=== PATIENT | female | born 1960 | race Caucasian/White ===

== ENCOUNTER → 2017-06-12 | Outpatient (CLI) | payer OTHER ==
--- NOTE | 2017-06-12 11:24 | PFTRPT ---
Tech: Wayne TSANG RRT Age: 56 Sex: Female Race: Height: 48.00 Inches Weight: 263.00 Lbs BSA: 1.78 Diagnosis: R06.02 TECH NOTES: The test meet the ATS standards for acceptability and repeatability. The patient was given four puffs of albuterol for postbronchodilator. IVC is less than 85% of VC. DLCO may be underestimated. PULMONARY FUNCTION REPORT ORDERING PROVIDER: Max Woody MD DATE OF SERVICE: 06/12/17 SPIROMETRY: Pre and post bronchodilator study of excellent technical quality. The forced vital capacity is normal. The FEV1 is in proportion. The obstructive index is, therefore, normal. FLOW VOLUME LOOP: The expiratory limb of the flow volume loop is borderline for normalcy. No significant bronchodilator response is identified. LUNG VOLUMES: The total lung capacity is minimally elevated. The residual volume is in proportion. DIFFUSION CAPACITY: The diffusion capacity is mildly reduced, but does correct for alveolar volume. HEMOGLOBIN: Hemoglobin is borderline elevated at 17.2. AIRWAY MECHANICS: Airway resistance is mildly elevated with a concomitant decrease in airway conductance. IMPRESSION: Nonspecific limitations with a mild decrease in the absolute diffusion capacity. Please correlate clinically. MTDD
== END ==
LOC: M CARPUL 10:19
PROVIDERS: ATTEND Internal Medicine Pulmonary Disease
DX: R06.02 Shortness of breath (principal)

== ENCOUNTER → 2019-10-29 | Outpatient (CLI) | payer OTHER ==
--- NOTE | 2019-10-30 20:27 | SLEEPCENT ---
DATE OF PROCEDURE: 10/29/2019 ORDERED BY: Dr. Max Woody Nocturnal polysomnography was performed for the re-titration of pressure therapy in this patient with obstructive sleep apnea syndrome and abnormal nocturnal oximetry despite 17 cm of water pressure. For testing the patient was fit with a [employer] Simplus full-face mask of small size, 17 cm of water pressure were applied to the circuit with 4 liters of oxygen bled through the system and the lights were extinguished. 8 hours and 11 minutes of data were reviewed. There were 427 minutes of sleep identified. Sleep latency was short at 2 minutes. Rapid eye movement (REM) sleep was not achieved. Sleep architecture showed poor progression throughout. Overall sleep efficiency was 88.5%. The electrocardiogram showed a sinus rhythm with small complexes, occasional premature ventricular contractions (PVCs) were noted, average heart rate 76 beats per minute. EEG showed fairly normal waveforms for awake and sleep. Persistence of respiratory events and snore events prompted an increase in continuous positive airway pressure (CPAP). It appears that oxygen was continued at 4 liters late in the study. Despite optimal mask fit and minimal air leak, the patient was changed to a bilevel device and for the final 33 minutes of testing, the patient did sleep reasonably well with only one event and no oxygen desaturations below 90. IMPRESSION: Obstructive sleep apnea syndrome (G47.33). RECOMMENDATIONS: While an optimal pressure is difficult to determine based on this study, I would recommend initiation of a bilevel pressure device, inspiratory pressure 24 over expiratory pressure of 20 with 4 liters of oxygen bled through the system.
== END ==
LOC: M SLEEP 20:00
PROVIDERS: ATTEND Internal Medicine Pulmonary Disease
DX: G47.33 Obstructive sleep apnea (adult) (pediatric) (principal); J96.11 Chronic respiratory failure with hypoxia

== ENCOUNTER → 2019-12-31 | Outpatient (CLI) | payer OTHER ==
[~2019-12-31] MED LIST: ACET300T52 PO; BUSP10TA PO; CELE1CAP9 PO; EFFE150C2 PO; GABA600T4 PO; HYDR-3911 PO; INDA125TA PO; IPRA0.00 INH; LISI30TA4 PO; METF-838 PO; METH-1165 PO; NEUR800T PO; OMEP-218 PO; SIMV10TA21 PO; STOO2CAP PO; VENL37.598 PO; VENTAER INH
--- NOTE | 2019-12-31 16:47 | REP ---
Clinical: Lung screening. History smoking. Comparison: None Technique: Axial low-dose noncontrast images from the thoracic inlet to the upper abdomen using lung screening technique. Findings: Examination is somewhat limited be due to body habitus and low dose scanning technique causing quality degradation. The lung anaya are well-aerated. 4 mm nodule in the left lower lobe along with subtle small non solid opacities are identified. No consolidation, further significant nodule or mass lesion is appreciated. No obvious pleural effusion or pneumothorax. Impression: Lung-RADS category III. A 4 mm nodular density in the left lower lobe is suggested along with small scattered non solid opacities. Management recommendations include 6-month low-dose CT reevaluation. Electronically Signed by Oni Henderson MD 12/31/2019 04:38 P
== END ==
LOC: M RAD 09:47
PROVIDERS: ATTEND Internal Medicine Medical Oncology
DX: Z12.2 Encounter for screening for malignant neoplasm of respiratory organs (principal); F17.210 Nicotine dependence, cigarettes, uncomplicated

== ENCOUNTER → 2020-11-01 | Outpatient (CLI) | payer OTHER ==
[~2020-11-01] MED LIST changes: +DOCU-160 PO; -STOO2CAP PO
--- NOTE | 2020-11-03 02:40 | ECWPNPC ---
PATIENT NAME: RONALDO LUNDBERG : 1960 GENDER: FEMALE VISIT DATE: 11/01/2020 DISCHARGE DATE: 11/01/20 1415 VISIT LOCKED DATE TIME: PHYSICIAN: EILEEN GRISSOM RESOURCE: EILEEN GRISSOM REASON FOR APPOINTMENT 1. CHRONIC PAIN (SON TO ACCOMPANY PATIENT D/T MEMORY PROBLEMS) HISTORY OF PRESENT ILLNESS GENERAL: - 59-YEAR-OLD FEMALE IN FOR INITIAL PAIN CONSULT REGARDING CHRONIC PAIN. PATIENT ADMITS TO LOW BACK PAIN WITH RADICULOPATHY FOR SEVERAL YEARS. SHE WAS PREVIOUSLY PRESCRIBED HYDROCODONE AND IS CURRENTLY UTILIZING MEDICAL MARIJUANA. PATIENT IS ON GABAPENTIN AND WISHES TO DISCONTINUE USE SHE FEELS THIS IS NOT BENEFICIAL. FALL RISK SCREENING: SCREENING FEW FALLS REPORTED IN THE LAST YEAR WITH INJURY. PATIENT DID NOT SEEK MEDICAL TREATMENT.. PAIN SCREENING: PATIENT HAS A COMPLAINT OF ACUTE OR CHRONIC PAIN :YES LOCATION OF PAIN:OTHER: PAIN THROUGHOUT BODY. INTENSITY OF PAIN (SCALE OF 1 TO 10):8 WHAT DOES YOUR PAIN FEEL LIKE:CONTINOUS, SHARP, THROBBING DURATION:CONTINOUS, AWAKENS FROM SLEEP PAIN IS INCREASED BY:ACTIVITIES PAIN IS DECREASED BY:USE OF PAIN MEDICATIONS PAIN MEDS TAKE THE EDGE OFF. NURSING NOTE: -. PAIN CENTER INTAKE QUESTIONS: DO YOU HAVE A HISTORY OF MRSA? :NO UNSURE DO YOU TAKE A BLOOD THINNERS? :YES CELEBREX, METHOCARBAMOL DO YOU HAVE ANY BLEEDING DISORDERS? :NO ANY NEW NUMBNESS OR WEAKNESS IN YOUR LEGS OR ARMS? :NO ANY PACEMAKER,DEFIBRILLATOR, OR DORSAL COLUMN STIMULATOR? :NO DO YOU HAVE ANY RASHES OR OPEN SORES? :NO ARE YOU ALLERGIC TO IV DYE? :NO ARE YOU DIABETIC? :YES TYPE II ANY NEW PROBLEMS WITH YOUR MEDICATIONS? :NO HAVE YOU RECEIVED A VACCINE IN THE PAST 30 DAYS? :NO DO YOU PLAN TO RECEIVE A VACCINE IN THE NEXT 21 DAYS? :NO UNSURE DO YOU NEED ANY PRESCRIPTION? :NO DO YOU TAKE ANY IMMUNOSUPPRESSIVE MEDICATIONS? :NO DO YOU HAVE ANY KIDNEY OR LIVER DISEASE? :NO IS THERE A CHANCE YOU COULD BE ? :NO ARE YOU BREAST FEEDING? :NO CURRENT MEDICATIONS TAKING METHOCARBAMOL 750 MG TABLET 1 TABLET ORALLY EVERY 8 HRS TAKING GABAPENTIN 800 MG TABLET 1 TABLET ORALLY THREE TIMES A DAY, NOTES: PATIENT WANTS TO TAPER OFF D/T MEMORY LOSS TAKING CELEBREX 200 MG CAPSULE 1 CAPSULE WITH FOOD ORALLY ONCE A DAY TAKING TYLENOL 500MG ORAL OTC PRN TAKING ASPIRIN 1 TAB ORAL 81MG DAILY TAKING ADVIL 200 MG TABLET 1 TABLET WITH FOOD OR MILK NEEDED ORALLY THREE TIMES A DAY TAKING HYDROCODONE-ACETAMINOPHEN 5-325 MG TABLET DIRECTED ORALLY EVERY 6 HRS TAKING METFORMIN 1 TAB ORAL 500MG (2AM) (1PM) TAKING BUSPAR 10 MG TABLET 1 TABLET ORALLY THREE A DAY TAKING TRAZODONE HCL 100 MG TABLET 2 TABLET AT BEDTIME ORALLY ONCE A DAY TAKING LISINOPRIL-HYDROCHLOROTHIAZIDE 20-25 MG TABLET 1 TABLET ORALLY ONCE A DAY TAKING COLACE 100 MG CAPSULE 1 CAPSULE NEEDED ORALLY ONCE A DAY TAKING LASIX 20 MG TABLET 1 TABLET ORALLY ONCE A DAY TAKING EFFEXOR XR 150 MG CAPSULE EXTENDED RELEASE 24 HOUR 1 CAPSULE WITH FOOD ORALLY ONCE A DAY TAKING VITAMIN D (ERGOCALCIFEROL) 1.25 MG (85665 UT) CAPSULE 1 CAPSULE ORALLY TAKING EFFEXOR XR 37.5 MG CAPSULE EXTENDED RELEASE 24 HOUR 1 CAPSULE WITH FOOD ORALLY ONCE A DAY TAKING SIMVASTATIN 10 MG TABLET 1 TABLET IN THE EVENING ORALLY ONCE A DAY TAKING INDAPAMIDE 1.25 MG TABLET 1 TABLET IN THE MORNING ORALLY ONCE A DAY TAKING OXYGEN 4 LITERS NASAL CANNULA DURING DAY TAKING MAY USE CPAP 5 LITERS OXYGEN BLED THROUGH AT BEDTIME TAKING ALBUTEROL SULFATE HFA 108 (90 BASE) MCG/ACT AEROSOL SOLUTION 1 PUFF NEEDED INHALATION EVERY 4 HRS TAKING NEBULIZER - DEVICE DIRECTED TAKING ADVAIR DISKUS 500-50 MCG/DOSE AEROSOL POWDER BREATH ACTIVATED 1 PUFF INHALATION TWICE A DAY TAKING ALBUTEROL SULFATE (2.5 MG/3ML) 0.083% NEBULIZATION SOLUTION 3 ML NEEDED INHALATION EVERY 6 HRS UNKNOWN PREDNISONE 1 MG TABLET 1 TABLET ORALLY ONCE A DAY UNKNOWN ACETAMINOPHEN-CODEINE #4 300-60 MG TABLET 1 TABLET NEEDED ORALLY EVERY 6 HRS MEDICATION LIST REVIEWED AND RECONCILED WITH THE PATIENT PAST MEDICAL HISTORY HYPERTENSION SEIZURES DEPRESSION ALLERGIES WELLBUTRIN: RASH - ALLERGY PENICILLIN (FOR ALLERGIES USE ONLY): RASH - ALLERGY SERZONE: RASH - ALLERGY GABAPENTIN: MEMORY LOSS - SIDE EFFECTS SOCIAL HISTORY GENERAL: TOBACCO USE ARE YOU A:CURRENT SMOKER ARE YOU INTERESTED IN QUITTING?THINKING ABOUT QUITTING PREVIOUS QUIT ATTEMPTS?YES, MORE THAN 6 MONTHS AGO. COUNSELED THE PATIENT ON SMOKING CESSATION, EDUCATION [id number]/26/2021 HOW MANY CIGARETTES A DAY DO YOU SMOKE?11-20 HOW SOON AFTER YOU WAKE UP DO YOU SMOKE YOUR FIRST CIGARETTE?WITHIN 5 MIN HOW OFTEN DO YOU SMOKE CIGARETTES?EVERY DAY PATIENT COUNSELED ON THE DANGERS OF TOBACCO USE AND URGED TO QUIT:10/07/2020 LATEX QUESTIONNAIRE LATEX ALLERGY : HAVE YOU EVER DEVELOPED ANY TYPE OF REACTION AFTER HANDLING LATEX PRODUCTS SUCH RUBBER GLOVES, CONDOMS, DIAPHRAGMS, BALLOONS, SOCKS, OR UNDERWEAR?NO LATEX ALLERGY : HAVE YOU EVER DEVELOPED ANY TYPE OF REACTION DURING OR AFTER DENTAL APPOINTMENT, VAGINAL/RECTAL EXAMINATION, SURGICAL PROCEDURE, OR ANY OTHER EXPOSURE?NO LATEX RISK : HAVE YOU EVER HAD ANY DIFFICULTY BREATHING OR HIVES AFTER EATING OR HANDLING ANY FRUITS, OR VEGETABLES; SUCH KIWI, BANANAS, STONE FRUITS, OR CHESTNUTSNO LATEX RISK : DO YOU HAVE A PREVIOUS PERSONAL HISTORY OF MORE THAN NINE SURGERIES, SPINA BIFIDA, OR REPEATED CATHERIZATIONS? NO LATEX RISK : ARE YOU FREQUENTLY EXPOSED TO LATEX PRODUCTS IN YOUR OCCUPATION?NO DATE ASKED : 11/01/2020 ALCOHOL USE: NO. RECREATIONAL DRUG USE DRUG USE?NO MEDICAL MARIJUANA CARD LATTER DAY LATTER DAY NO ANGLICAN BELIEFS THAT WOULD IMPACT HEALTH CARE. LANGUAGE LANGUAGES SPOKEN:THAI EDUCATION LEVEL OF EDUCATION:FINISHED HIGH SCHOOL LEARNING BARRIERS / SPECIAL NEEDS CHANGE FROM LAST VISIT?NO BARRIERS TO LEARNING?YES COMMENTSDOCUMENTED IN NOTES SECTION> MEMORY ISSUES HEARING IMPAIRED?NO VISION IMPAIRED?YES :CORRECTIVE LENSES READING GLASSES COGNITIVELY IMPAIRED?NO READINESS TO LEARN?YES LEARNING PREFERENCES?NO LEARNING CAPABILITIES PRESENT?YES EMOTIONAL BARRIERS?YES COMMENTSDOCUMENTED IN NOTES SECTION> DEPRESSION SPECIAL DEVICES?YES :CANE, WALKER, WHEELCHAIR PATIENT ADMITS TO USING FURNITURE. REGULATORY AFFAIRS INTERNSHIP NEEDED?NO OCCUPATION: DISABLED.. OTHERS AT HOME: SPOUSE. REVIEW OF SYSTEMS CONSTITUTIONAL: ANY RECENT FEVER NO . CHILLS NO . WEIGHT CHANGE OF UNKNOWN REASONS NO . MUSCULOSKELETAL: ANY UNUSUAL JOINT PAIN OR SWELLING NOT MENTIONED NO . SYSTEMIC LUPUS NO . ANY NEUROMUSCULAR DISORDER NOT MENTIONED NO . LYME DISEASE NO . GASTROENTEROLOGY: ANY NEW CHANGE IN BOWEL CONTROL? NO . HISTORY OF LIVER DISORDER NOT MENTIONED NO . HISTORY OF UNUSUAL ABDOMINAL PAIN OR CRAMPING NOT MENTIONED NO . NO CONSTIPATION. GENITOURINARY: ANY NEW CHANGE IN BLADDER CONTROL? NO . ANY RENAL/KIDNEY CONDITON NOT MENTIONED NO . NEUROLOGY: HISTORY OF TBI NOT MENTIONED NO . OTHER NEW NUMBNESS OR PAIN PATTERNS NOT MENTIONED NO . NEW ONSET DIZZINESS OR NEUROLOGICAL CHANGES NOT MENTIONED NO . HISTORY OF SEVERE HEADACHES NOT MENTIONED NO . HISTORY OF STROKE OR NEUROLOGICAL DISORDER NOT MENTIONED NO . CARDIOLOGY: HEART SURGERY NO . CONGESTIVE HEART FAILURE/FLUID OVERLOAD NOT MENTIONED NO . HISTORY OF CHEST PAIN,IRREGULAR HEART BEAT NOT MENTIONED NO . RESPIRATORY: SHORTNESS OF BREATH ON EXERTION, WHEEZES, UNUSUAL COUGH NOT MENTIONED NO . ENDOCRINOLOGY: ADRENAL GLAND OR THYROID DISORDERS NOT MENTIONED NO . UNUSUAL URINATION, DIZZINESS OR LETHARGY NOT MENTIONED NO . VITAL SIGNS WT 274 LBS, HT 44 IN, BMI 99.49 INDEX, BP 138/64 MM HG, HR 83 /MIN, RR 20 /MIN, TEMP 97.6 F, OXYGEN SAT % 92%, SAFE IN ENV? (Y/N) YES, REVIEWED BY: YURIY TAVAREZ MA. EXAMINATION GENERAL EXAMINATION: GENERALNO ACUTE DISTRESS, WELL NOURISHED AND HYDRATED. PSYCHAPPROPRIATE MOOD AND AFFECT . LUNGS:CLEAR TO AUSCULTATION BILATERALLY, NO WHEEZES, RHONCHI, RALES. HEART:NO MURMURS, REGULAR RATE AND RHYTHM. BACK:PATIENT POINT TENDER ALONG LUMBAR SPINE AND ENDORSES INCREASED PAIN WITH FACET LOADING. . ASSESSMENTS LOW BACK PAIN - M54.5 (PRIMARY) TREATMENT LOW BACK PAIN START GABAPENTIN CAPSULE, 400 MG, 1 CAPSULE, ORALLY, TID X 1 WEEK THEN BID X 1 WEEK, THEN DAILY X 1 WEEK, THEN EVERY OTHER DAY X 1 WEEK THEN STOP, 30 DAY(S), 46 NOTES: 59-YEAR-OLD FEMALE IN FOR INITIAL PAIN CONSULT REGARDING LOW BACK PAIN AND RADICULOPATHY. SHE IS ACCOMPANIED BY HER SON. GIVEN PRESENTING SYMPTOMS AND RESULTS OF PHYSICAL EXAMINATION RECOMMENDED TAPERING OFF GABAPENTIN AND STARTING LYRICA WITH FOLLOW-UP IN ONE MONTH TO DETERMINE EFFICACY OF TREATMENT. PATIENT REQUESTED THIS BEAD WRAPPER TAKE OVER PRESCRIPTION OF HER HYDROCODONE FROM HER PREVIOUS PAIN PROVIDER AND SHE WAS INFORMED THAT IT IS THE POLICY THIS CLINIC THAT IF THE PATIENT IS ON MEDICAL MARIJUANA WE DO NOT PRESCRIBE OPIATES AND PATIENT EXPRESSED UNDERSTANDING. PATIENT HAS EXPRESSED UNDERSTANDING OF AND WAS IN AGREEMENT WITH TREATMENT PLAN. GIVEN TIME TO ASK QUESTIONS AND EXPRESS CONCERNS. OTHERS START LYRICA CAPSULE, 75 MG, 1 CAPSULE, ORALLY, TWICE DAILY, 30 DAYS, 60 CLINICAL NOTES: MEDICATION INFORMATION PRINTED AND PROVIDED TO PATIENT. PATIENT VERBALIZED AN UNDERSTANDING. JULIETTE TAVAREZ MA. PROCEDURE CODES FA211 ESTABILISHED PATIENT [facility] CHARGE DISPOSITION & COMMUNICATION FOLLOW UP 4 WEEKS (REASON: NEW MED ) ELECTRONICALLY SIGNED BY FRANCHESCA MARTINEZ ON 11/02/2020 AT 09:05 AM EDT DISCLAIMER : THIS IS A VISIT SUMMARY EXTRACTED FROM THE [employer] CHART. IT IS NOT A COPY OF THE [employer] PROGRESS NOTE. RENAE
== END ==
LOC: M PAIN 13:00
PROVIDERS: ATTEND Family Medicine
DX: M54.5 Low back pain (principal); I10 Essential (primary) hypertension; F32.9 Major depressive disorder, single episode, unspecified; R56.9 Unspecified convulsions; F17.210 Nicotine dependence, cigarettes, uncomplicated; Z79.82 Long term (current) use of aspirin; Z79.891 Long term (current) use of opiate analgesic; Z79.84 Long term (current) use of oral hypoglycemic drugs; Z99.81 Dependence on supplemental oxygen; Z79.899 Other long term (current) drug therapy; Z88.0 Allergy status to penicillin; Z88.8 Allergy status to other drugs, medicaments and biological substances

== ENCOUNTER → 2020-11-29 | Outpatient (CLI) | payer OTHER ==
--- NOTE | 2020-12-01 03:43 | ECWPNPC ---
PATIENT NAME: RONALDO LUNDBERG : 1960 GENDER: FEMALE VISIT DATE: 11/29/2020 DISCHARGE DATE: 11/29/20 1131 VISIT LOCKED DATE TIME: PHYSICIAN: EILEEN GRISSOM RESOURCE: EILEEN GRISSOM REASON FOR APPOINTMENT 1. NEW MED HISTORY OF PRESENT ILLNESS DEPRESSION SCREENING: PHQ-2 (2015 EDITION) LITTLE INTEREST OR PLEASURE IN DOING THINGS?NOT AT ALL FEELING DOWN, DEPRESSED, OR HOPELESS?NOT AT ALL TOTAL SCORE0 GENERAL: HPI 60-YEAR-OLD FEMALE IN FOR CHRONIC PAIN FOLLOW-UP. AT LAST CLINIC VISIT PATIENT WAS STARTED ON LYRICA AND SHE ADMITS TODAY THAT AT HIS CURRENT DOSAGE IT WAS NOT BENEFICIAL. SHE RATES HER PAIN CURRENTLY AT A 9 OUT OF 10.. -. FALL RISK SCREENING: SCREENING TWO FALLS REPORTED IN THE LAST YEAR WITH INJURY. PATIENT DID NOT SEEK IMMEDIATE MEDICAL TREATMENT.. PAIN SCREENING: PATIENT HAS A COMPLAINT OF ACUTE OR CHRONIC PAIN :YES LOCATION OF PAIN:OTHER: GENERALIZED INTENSITY OF PAIN (SCALE OF 1 TO 10):9 WHAT DOES YOUR PAIN FEEL LIKE:ACHING, BURNING, CONTINOUS, SHARP, STABBING, TENDER, THROBBING, SORE, SHOOTING DURATION:CONTINOUS, AWAKENS FROM SLEEP PAIN IS INCREASED BY:ACTIVITIES, PROLONGED STANDING PAIN IS DECREASED BY:SITTING NURSING NOTE: -. PAIN CENTER INTAKE QUESTIONS: DO YOU HAVE A HISTORY OF MRSA? :NO UNSURE DO YOU TAKE A BLOOD THINNERS? :YES CELEBREX, METHOCARBAMOL DO YOU HAVE ANY BLEEDING DISORDERS? :NO ANY NEW NUMBNESS OR WEAKNESS IN YOUR LEGS OR ARMS? :NO ANY PACEMAKER,DEFIBRILLATOR, OR DORSAL COLUMN STIMULATOR? :NO DO YOU HAVE ANY RASHES OR OPEN SORES? :NO ARE YOU ALLERGIC TO IV DYE? :NO ARE YOU DIABETIC? :YES TYPE II ANY NEW PROBLEMS WITH YOUR MEDICATIONS? :NO HAVE YOU RECEIVED A VACCINE IN THE PAST 30 DAYS? :NO DO YOU PLAN TO RECEIVE A VACCINE IN THE NEXT 21 DAYS? :YES FIRST COVID VACCINATION 12/02/20 DO YOU NEED ANY PRESCRIPTION? :NO DO YOU TAKE ANY IMMUNOSUPPRESSIVE MEDICATIONS? :NO DO YOU HAVE ANY KIDNEY OR LIVER DISEASE? :NO IS THERE A CHANCE YOU COULD BE ? :NO ARE YOU BREAST FEEDING? :NO CURRENT MEDICATIONS TAKING METHOCARBAMOL 750 MG TABLET 1 TABLET ORALLY EVERY 8 HRS TAKING GABAPENTIN 800 MG TABLET 1 TABLET ORALLY THREE TIMES A DAY, NOTES: PATIENT WANTS TO TAPER OFF D/T MEMORY LOSS TAKING CELEBREX 200 MG CAPSULE 1 CAPSULE WITH FOOD ORALLY ONCE A DAY TAKING TYLENOL 500MG ORAL OTC PRN TAKING ASPIRIN 1 TAB ORAL 81MG DAILY TAKING ADVIL 200 MG TABLET 1 TABLET WITH FOOD OR MILK NEEDED ORALLY THREE TIMES A DAY TAKING METFORMIN 1 TAB ORAL 500MG (2AM) (1PM) TAKING BUSPAR 10 MG TABLET 1 TABLET ORALLY THREE A DAY TAKING TRAZODONE HCL 100 MG TABLET 2 TABLET AT BEDTIME ORALLY ONCE A DAY TAKING LISINOPRIL-HYDROCHLOROTHIAZIDE 20-25 MG TABLET 1 TABLET ORALLY ONCE A DAY TAKING COLACE 100 MG CAPSULE 1 CAPSULE NEEDED ORALLY ONCE A DAY TAKING LASIX 20 MG TABLET 1 TABLET ORALLY ONCE A DAY TAKING EFFEXOR XR 150 MG CAPSULE EXTENDED RELEASE 24 HOUR 1 CAPSULE WITH FOOD ORALLY ONCE A DAY TAKING VITAMIN D (ERGOCALCIFEROL) 1.25 MG (72822 UT) CAPSULE 1 CAPSULE ORALLY TAKING EFFEXOR XR 37.5 MG CAPSULE EXTENDED RELEASE 24 HOUR 1 CAPSULE WITH FOOD ORALLY ONCE A DAY TAKING SIMVASTATIN 10 MG TABLET 1 TABLET IN THE EVENING ORALLY ONCE A DAY TAKING INDAPAMIDE 1.25 MG TABLET 1 TABLET IN THE MORNING ORALLY ONCE A DAY TAKING OXYGEN 4 LITERS NASAL CANNULA DURING DAY TAKING MAY USE CPAP 5 LITERS OXYGEN BLED THROUGH AT BEDTIME TAKING ALBUTEROL SULFATE HFA 108 (90 BASE) MCG/ACT AEROSOL SOLUTION 1 PUFF NEEDED INHALATION EVERY 4 HRS TAKING NEBULIZER - DEVICE DIRECTED TAKING ADVAIR DISKUS 500-50 MCG/DOSE AEROSOL POWDER BREATH ACTIVATED 1 PUFF INHALATION TWICE A DAY TAKING ALBUTEROL SULFATE (2.5 MG/3ML) 0.083% NEBULIZATION SOLUTION 3 ML NEEDED INHALATION EVERY 6 HRS TAKING LYRICA 75 MG CAPSULE 1 CAPSULE ORALLY TWICE DAILY TAKING GABAPENTIN 400 MG CAPSULE 1 CAPSULE ORALLY TID X 1 WEEK THEN BID X 1 WEEK, THEN DAILY X 1 WEEK, THEN EVERY OTHER DAY X 1 WEEK THEN STOP NOT-TAKING HYDROCODONE-ACETAMINOPHEN 5-325 MG TABLET DIRECTED ORALLY EVERY 6 HRS UNKNOWN PREDNISONE 1 MG TABLET 1 TABLET ORALLY ONCE A DAY UNKNOWN ACETAMINOPHEN-CODEINE #4 300-60 MG TABLET 1 TABLET NEEDED ORALLY EVERY 6 HRS MEDICATION LIST REVIEWED AND RECONCILED WITH THE PATIENT PAST MEDICAL HISTORY HYPERTENSION SEIZURES DEPRESSION ALLERGIES WELLBUTRIN: RASH - ALLERGY PENICILLIN (FOR ALLERGIES USE ONLY): RASH - ALLERGY SERZONE: RASH - ALLERGY GABAPENTIN: MEMORY LOSS - SIDE EFFECTS SOCIAL HISTORY GENERAL: TOBACCO USE ARE YOU A:CURRENT SMOKER ARE YOU INTERESTED IN QUITTING?NOT READY TO QUIT HOW MANY CIGARETTES A DAY DO YOU SMOKE?11-20 HOW SOON AFTER YOU WAKE UP DO YOU SMOKE YOUR FIRST CIGARETTE?WITHIN 5 MIN HOW OFTEN DO YOU SMOKE CIGARETTES?EVERY DAY PATIENT COUNSELED ON THE DANGERS OF TOBACCO USE AND URGED TO QUIT:10/07/2020 LATEX QUESTIONNAIRE LATEX ALLERGY : HAVE YOU EVER DEVELOPED ANY TYPE OF REACTION AFTER HANDLING LATEX PRODUCTS SUCH RUBBER GLOVES, CONDOMS, DIAPHRAGMS, BALLOONS, SOCKS, OR UNDERWEAR?NO LATEX ALLERGY : HAVE YOU EVER DEVELOPED ANY TYPE OF REACTION DURING OR AFTER DENTAL APPOINTMENT, VAGINAL/RECTAL EXAMINATION, SURGICAL PROCEDURE, OR ANY OTHER EXPOSURE?NO LATEX RISK : HAVE YOU EVER HAD ANY DIFFICULTY BREATHING OR HIVES AFTER EATING OR HANDLING ANY FRUITS, OR VEGETABLES; SUCH KIWI, BANANAS, STONE FRUITS, OR CHESTNUTSNO LATEX RISK : DO YOU HAVE A PREVIOUS PERSONAL HISTORY OF MORE THAN NINE SURGERIES, SPINA BIFIDA, OR REPEATED CATHERIZATIONS? NO LATEX RISK : ARE YOU FREQUENTLY EXPOSED TO LATEX PRODUCTS IN YOUR OCCUPATION?NO DATE ASKED : 11/29/2020 ALCOHOL USE: NO. RECREATIONAL DRUG USE DRUG USE?NO MEDICAL MARIJUANA CARD SABIANISM SABIANISM NO MORMONISM BELIEFS THAT WOULD IMPACT HEALTH CARE. LANGUAGE LANGUAGES SPOKEN:TANZANIAN EDUCATION LEVEL OF EDUCATION:FINISHED HIGH SCHOOL LEARNING BARRIERS / SPECIAL NEEDS CHANGE FROM LAST VISIT?NO BARRIERS TO LEARNING?YES COMMENTSDOCUMENTED IN NOTES SECTION> MEMORY ISSUES HEARING IMPAIRED?NO VISION IMPAIRED?YES :CORRECTIVE LENSES READING GLASSES COGNITIVELY IMPAIRED?NO READINESS TO LEARN?YES LEARNING PREFERENCES?NO LEARNING CAPABILITIES PRESENT?YES EMOTIONAL BARRIERS?YES COMMENTSDOCUMENTED IN NOTES SECTION> DEPRESSION SPECIAL DEVICES?YES :CANE, WALKER, WHEELCHAIR PATIENT ADMITS TO USING FURNITURE. UNDERWRITING SALES REPRESENTATIVE NEEDED?NO OCCUPATION: DISABLED.. OTHERS AT HOME: SPOUSE. REVIEW OF SYSTEMS CONSTITUTIONAL: ANY RECENT FEVER NO . CHILLS NO . WEIGHT CHANGE OF UNKNOWN REASONS NO . GASTROENTEROLOGY: NEW UNEXPLAINABLE CHANGES IN BOWEL CONTROL NO . CONSTIPATION NO . GENITOURINARY: ANY NEW CHANGE IN BLADDER CONTROL? NO . NEUROLOGY: NEW ONSET DIZZINESS OR NEUROLOGICAL CHANGES NOT MENTIONED NO . NEW NUMBNESS OR PAIN PATTERNS NOT MENTIONED AND PERTINENT TO TODAY'S VISIT NO . CARDIOLOGY: NEW CHEST PRESSURE NO . PATIENT DENIES NO . RESPIRATORY: UNEXPLAINABLE COUGH NO . NEW SHORTNESS OF BREATH NO . VITAL SIGNS WT 278 LBS, HT 44 IN, BMI 100.95 INDEX, BP 148/78 MM HG, HR 80 /MIN, RR 20 /MIN, TEMP 98.6 F, OXYGEN SAT % 93%, SAFE IN ENV? (Y/N) YES, NA INITIALS CA 11:04, REVIEWED BY: YURIY TAVAREZ MA. EXAMINATION GENERAL EXAMINATION: GENERALNO ACUTE DISTRESS, WELL NOURISHED AND HYDRATED. PSYCHAPPROPRIATE MOOD AND AFFECT . LUNGS:CLEAR TO AUSCULTATION BILATERALLY, NO WHEEZES, RHONCHI, RALES. HEART:NO MURMURS, REGULAR RATE AND RHYTHM. ASSESSMENTS LOW BACK PAIN - M54.5 (PRIMARY) TREATMENT LOW BACK PAIN STOP GABAPENTIN CAPSULE, 400 MG, 1 CAPSULE, ORALLY, TID X 1 WEEK THEN BID X 1 WEEK, THEN DAILY X 1 WEEK, THEN EVERY OTHER DAY X 1 WEEK THEN STOP, 30 DAY(S) STOP GABAPENTIN TABLET, 800 MG, 1 TABLET, ORALLY, THREE TIMES A DAY, NOTES: PATIENT WANTS TO TAPER OFF D/T MEMORY LOSS REFILL LYRICA CAPSULE, 100 MG, 1 CAPSULE, ORALLY, THREE TIMES DAILY, 30 DAYS, 90 NOTES: 60-YEAR-OLD FEMALE IN FOR CHRONIC PAIN FOLLOW-UP. GIVEN PRESENTING SYMPTOMS RECOMMEND INCREASING LYRICA TO 100 MG 3 TIMES A DAY WITH FOLLOW-UP IN ONE MONTH TO DETERMINE EFFICACY OF TREATMENT. PATIENT HAS EXPRESSED UNDERSTANDING OF AND WAS IN AGREEMENT WITH TREATMENT PLAN. GIVEN TIME TO ASK QUESTIONS AND EXPRESS CONCERNS. [employer] REGISTRY REVIEWED AND DEMONSTRATES COMPLLIANCE. (REF #[id number] ) BRINGS IN MEDICATIONS WHICH IS APPROPRIATE FOR WHAT WAS DISPENSED. OTHERS CLINICAL NOTES: MEDICATION INFORMATION PRINTED AND PROVIDED TO PATIENT. PATIENT VERBALIZED AN UNDERSTANDING. JULIETTE TAVAREZ MA. PROCEDURE CODES FA211 ESTABILISHED PATIENT [facility] CHARGE DISPOSITION & COMMUNICATION FOLLOW UP 4 WEEKS (REASON: MED INCREASE) ELECTRONICALLY SIGNED BY FRANCHESCA MARTINEZ ON 11/30/2020 AT 09:00 AM EDT DISCLAIMER : THIS IS A VISIT SUMMARY EXTRACTED FROM THE [employer] CHART. IT IS NOT A COPY OF THE [employer] PROGRESS NOTE. [facility]
== END ==
LOC: M PAIN 11:00
PROVIDERS: ATTEND Family Medicine
DX: M54.5 Low back pain (principal); G89.29 Other chronic pain; E11.9 Type 2 diabetes mellitus without complications; F17.210 Nicotine dependence, cigarettes, uncomplicated; Z86.59 Personal history of other mental and behavioral disorders; Z88.0 Allergy status to penicillin; Z88.8 Allergy status to other drugs, medicaments and biological substances; E66.01 Morbid (severe) obesity due to excess calories; Z68.45 Body mass index [BMI] 70 or greater, adult; Z79.82 Long term (current) use of aspirin; Z79.84 Long term (current) use of oral hypoglycemic drugs; Z79.899 Other long term (current) drug therapy

== ENCOUNTER → 2021-01-02 | Outpatient (CLI) | payer OTHER ==
--- NOTE | 2021-01-02 11:21 | REP ---
INDICATION: F/U LUNG NODULE, LUNG CANCER SCREENING. COMPARISON: 12/31/2019 TECHNIQUE: Axial noncontrast images from the thoracic inlet to the upper abdomen using low-dose lung screening technique (LDCT). As per the protocol only lung window images were sent to the read station for interpretation FINDINGS: 4 mm size nodule seen previously in the left lower lobe has resolved. There are no abnormal nodules, masses, or opacities. Grossly, the mediastinum and pulmonary tiffanie are unchanged. Grossly, the imaged upper abdomen and imaged osseous structures are unchanged. There is no evidence of a pleural or pericardial effusion. IMPRESSION: Lung rads category 1 exam. No abnormal nodules are identified. According to the revised Fleischner society criteria yearly lung screening is recommended. <Electronically signed by Lencho Carvajal > 01/02/21 [id number]
== END ==
LOC: M RAD 10:05
PROVIDERS: ATTEND Internal Medicine Hematology & Oncology
DX: Z12.2 Encounter for screening for malignant neoplasm of respiratory organs (principal); R91.1 Solitary pulmonary nodule; Z87.891 Personal history of nicotine dependence

== ENCOUNTER → 2021-01-18 | Outpatient (CLI) | payer OTHER ==
--- NOTE | 2021-01-20 01:00 | ECWPNPC ---
PATIENT NAME: RONALDO LUNDBERG : 1960 GENDER: FEMALE VISIT DATE: 01/18/2021 DISCHARGE DATE: 01/18/21 1114 VISIT LOCKED DATE TIME: PHYSICIAN: EILEEN GRISSOM RESOURCE: EILEEN GRISSOM REASON FOR APPOINTMENT 1. MED INCREASE HISTORY OF PRESENT ILLNESS GENERAL: HPI 60-YEAR-OLD FEMALE IN FOR CHRONIC PAIN FOLLOW-UP. PATIENT FEELS HER LYRICA IS HELPFUL BUT DOES ADMIT TO CONTINUED BREAKTHROUGH PAIN AT TIMES. SHE RATES HER PAIN CURRENTLY AT A 9 OUT OF 10 AND DESCRIBES IT ACHING, BURNING, AND CONTINUOUS. SHE DENIES MED SIDE EFFECTS AT THIS TIME.. -. FALL RISK SCREENING: SCREENING : NO FALLS REPORTED IN THE LAST YEAR. PAIN SCREENING: PATIENT HAS A COMPLAINT OF ACUTE OR CHRONIC PAIN :YES LOCATION OF PAIN:LOW BACK INTENSITY OF PAIN (SCALE OF 1 TO 10):9 WHAT DOES YOUR PAIN FEEL LIKE:ACHING, BURNING, CONTINOUS, SHARP DURATION:CONTINOUS PAIN IS INCREASED BY:ACTIVITIES PAIN IS DECREASED BY:OTHERS STATES NOTHING HELPS HER PAIN RIGHT NOW NURSING NOTE: -. PAIN CENTER INTAKE QUESTIONS: DO YOU HAVE A HISTORY OF MRSA? :NO DO YOU TAKE A BLOOD THINNERS? :NO DO YOU HAVE ANY BLEEDING DISORDERS? :NO ANY NEW NUMBNESS OR WEAKNESS IN YOUR LEGS OR ARMS? :NO ANY PACEMAKER,DEFIBRILLATOR, OR DORSAL COLUMN STIMULATOR? :NO DO YOU HAVE ANY RASHES OR OPEN SORES? :YES BILATERAL BREASTS " BROKEN OUT" ARE YOU ALLERGIC TO IV DYE? :NO ARE YOU DIABETIC? :YES ANY NEW PROBLEMS WITH YOUR MEDICATIONS? :NO HAVE YOU RECEIVED A VACCINE IN THE PAST 30 DAYS? :NO DO YOU PLAN TO RECEIVE A VACCINE IN THE NEXT 21 DAYS? :NO DO YOU NEED ANY PRESCRIPTION? :YES LYRICA DO YOU TAKE ANY IMMUNOSUPPRESSIVE MEDICATIONS? :NO DO YOU HAVE ANY KIDNEY OR LIVER DISEASE? :NO IS THERE A CHANCE YOU COULD BE ? :NO ARE YOU BREAST FEEDING? :NO CURRENT MEDICATIONS TAKING METHOCARBAMOL 750 MG TABLET 1 TABLET ORALLY EVERY 8 HRS TAKING CELEBREX 200 MG CAPSULE 1 CAPSULE WITH FOOD ORALLY ONCE A DAY TAKING TYLENOL 500MG ORAL OTC PRN TAKING ASPIRIN 1 TAB ORAL 81MG DAILY TAKING ADVIL 200 MG TABLET 1 TABLET WITH FOOD OR MILK NEEDED ORALLY THREE TIMES A DAY TAKING METFORMIN 1 TAB ORAL 500MG (2AM) (1PM) TAKING BUSPAR 10 MG TABLET 1 TABLET ORALLY THREE A DAY TAKING TRAZODONE HCL 100 MG TABLET 2 TABLET AT BEDTIME ORALLY ONCE A DAY TAKING LISINOPRIL-HYDROCHLOROTHIAZIDE 20-25 MG TABLET 1 TABLET ORALLY ONCE A DAY TAKING COLACE 100 MG CAPSULE 1 CAPSULE NEEDED ORALLY ONCE A DAY TAKING LASIX 20 MG TABLET 1 TABLET ORALLY ONCE A DAY TAKING EFFEXOR XR 150 MG CAPSULE EXTENDED RELEASE 24 HOUR 1 CAPSULE WITH FOOD ORALLY ONCE A DAY TAKING VITAMIN D (ERGOCALCIFEROL) 1.25 MG (50370 UT) CAPSULE 1 CAPSULE ORALLY TAKING EFFEXOR XR 37.5 MG CAPSULE EXTENDED RELEASE 24 HOUR 1 CAPSULE WITH FOOD ORALLY ONCE A DAY TAKING SIMVASTATIN 10 MG TABLET 1 TABLET IN THE EVENING ORALLY ONCE A DAY TAKING INDAPAMIDE 1.25 MG TABLET 1 TABLET IN THE MORNING ORALLY ONCE A DAY TAKING OXYGEN 4 LITERS NASAL CANNULA DURING DAY TAKING MAY USE CPAP 5 LITERS OXYGEN BLED THROUGH AT BEDTIME TAKING ALBUTEROL SULFATE HFA 108 (90 BASE) MCG/ACT AEROSOL SOLUTION 1 PUFF NEEDED INHALATION EVERY 4 HRS TAKING NEBULIZER - DEVICE DIRECTED TAKING ADVAIR DISKUS 500-50 MCG/DOSE AEROSOL POWDER BREATH ACTIVATED 1 PUFF INHALATION TWICE A DAY TAKING ALBUTEROL SULFATE (2.5 MG/3ML) 0.083% NEBULIZATION SOLUTION 3 ML NEEDED INHALATION EVERY 6 HRS TAKING LYRICA 100 MG CAPSULE 1 CAPSULE ORALLY THREE TIMES DAILY NOT-TAKING HYDROCODONE-ACETAMINOPHEN 5-325 MG TABLET DIRECTED ORALLY EVERY 6 HRS NOT-TAKING PREDNISONE 1 MG TABLET 1 TABLET ORALLY ONCE A DAY NOT-TAKING ACETAMINOPHEN-CODEINE #4 300-60 MG TABLET 1 TABLET NEEDED ORALLY EVERY 6 HRS MEDICATION LIST REVIEWED AND RECONCILED WITH THE PATIENT PAST MEDICAL HISTORY HYPERTENSION SEIZURES DEPRESSION ALLERGIES WELLBUTRIN: RASH - ALLERGY PENICILLIN (FOR ALLERGIES USE ONLY): RASH - ALLERGY SERZONE: RASH - ALLERGY GABAPENTIN: MEMORY LOSS - SIDE EFFECTS SOCIAL HISTORY GENERAL: TOBACCO USE ARE YOU A:CURRENT SMOKER ARE YOU INTERESTED IN QUITTING?NOT READY TO QUIT HOW MANY CIGARETTES A DAY DO YOU SMOKE?11-20 HOW SOON AFTER YOU WAKE UP DO YOU SMOKE YOUR FIRST CIGARETTE?WITHIN 5 MIN HOW OFTEN DO YOU SMOKE CIGARETTES?EVERY DAY PATIENT COUNSELED ON THE DANGERS OF TOBACCO USE AND URGED TO QUIT:01/18/2021 LATEX QUESTIONNAIRE LATEX ALLERGY : HAVE YOU EVER DEVELOPED ANY TYPE OF REACTION AFTER HANDLING LATEX PRODUCTS SUCH RUBBER GLOVES, CONDOMS, DIAPHRAGMS, BALLOONS, SOCKS, OR UNDERWEAR?NO LATEX ALLERGY : HAVE YOU EVER DEVELOPED ANY TYPE OF REACTION DURING OR AFTER DENTAL APPOINTMENT, VAGINAL/RECTAL EXAMINATION, SURGICAL PROCEDURE, OR ANY OTHER EXPOSURE?NO LATEX RISK : HAVE YOU EVER HAD ANY DIFFICULTY BREATHING OR HIVES AFTER EATING OR HANDLING ANY FRUITS, OR VEGETABLES; SUCH KIWI, BANANAS, STONE FRUITS, OR CHESTNUTSNO LATEX RISK : DO YOU HAVE A PREVIOUS PERSONAL HISTORY OF MORE THAN NINE SURGERIES, SPINA BIFIDA, OR REPEATED CATHERIZATIONS? NO LATEX RISK : ARE YOU FREQUENTLY EXPOSED TO LATEX PRODUCTS IN YOUR OCCUPATION?NO DATE ASKED : 01/18/2021 ALCOHOL USE: NO. RECREATIONAL DRUG USE DRUG USE?NO MEDICAL MARIJUANA CARD ANABAPTISM ANABAPTISM NO GNOSTICISM BELIEFS THAT WOULD IMPACT HEALTH CARE. LANGUAGE LANGUAGES SPOKEN:GREEK EDUCATION LEVEL OF EDUCATION:FINISHED HIGH SCHOOL LEARNING BARRIERS / SPECIAL NEEDS CHANGE FROM LAST VISIT?NO BARRIERS TO LEARNING?YES COMMENTSDOCUMENTED IN NOTES SECTION> MEMORY ISSUES HEARING IMPAIRED?NO VISION IMPAIRED?YES COGNITIVELY IMPAIRED?NO :CORRECTIVE LENSES READING GLASSES READINESS TO LEARN?YES LEARNING PREFERENCES?NO LEARNING CAPABILITIES PRESENT?YES EMOTIONAL BARRIERS?YES COMMENTSDOCUMENTED IN NOTES SECTION> DEPRESSION SPECIAL DEVICES?YES :CANE, WALKER, WHEELCHAIR PATIENT ADMITS TO USING FURNITURE. COLLEGE ASSOCIATE NEEDED?NO DOMESTIC VIOLENCE DO YOU FEEL SAFE IN YOUR ENVIRONMENT?YES OCCUPATION: DISABLED.. OTHERS AT HOME: SPOUSE. REVIEW OF SYSTEMS CONSTITUTIONAL: ANY RECENT FEVER NO . CHILLS NO . WEIGHT CHANGE OF UNKNOWN REASONS NO . GASTROENTEROLOGY: NEW UNEXPLAINABLE CHANGES IN BOWEL CONTROL NO . CONSTIPATION NO . GENITOURINARY: ANY NEW CHANGE IN BLADDER CONTROL? NO . NEUROLOGY: NEW ONSET DIZZINESS OR NEUROLOGICAL CHANGES NOT MENTIONED NO . NEW NUMBNESS OR PAIN PATTERNS NOT MENTIONED AND PERTINENT TO TODAY'S VISIT NO . CARDIOLOGY: NEW CHEST PRESSURE NO . PATIENT DENIES NO . RESPIRATORY: UNEXPLAINABLE COUGH NO . NEW SHORTNESS OF BREATH NO . VITAL SIGNS WT 278 LBS, HT 44 IN, BMI 100.95 INDEX, BP 147/71 MM HG, HR 90 /MIN, RR 20 /MIN, TEMP 97.0 F, OXYGEN SAT % 97%, SAFE IN ENV? (Y/N) YES, NA INITIALS AW 1055, REVIEWED BY: Santy DODD RN. EXAMINATION GENERAL EXAMINATION: GENERALNO ACUTE DISTRESS, WELL NOURISHED AND HYDRATED. PSYCHAPPROPRIATE MOOD AND AFFECT . LUNGS:BILATERAL CRACKLES AND WHEEZES NOTED . HEART:NO MURMURS, REGULAR RATE AND RHYTHM. ASSESSMENTS LOW BACK PAIN - M54.5 (PRIMARY) TREATMENT LOW BACK PAIN REFILL LYRICA CAPSULE, 150 MG, 1 CAPSULE, ORALLY, THREE TIMES DAILY, 90 DAY(S), 270, REFILLS 1 NOTES: 60-YEAR-OLD FEMALE IN FOR CHRONIC PAIN FOLLOW-UP. GIVEN PRESENTING SYMPTOMS RECOMMEND INCREASING LYRICA TO 150 MG 3 TIMES DAILY WITH FOLLOW-UP IN 3 MONTHS. PATIENT HAS EXPRESSED UNDERSTANDING OF AND WAS IN AGREEMENT WITH TREATMENT PLAN. GIVEN TIME TO ASK QUESTIONS AND EXPRESS CONCERNS. [employer] REGISTRY REVIEWED AND DEMONSTRATES COMPLLIANCE. (REF # [id number] ) BRINGS IN MEDICATIONS WHICH IS APPROPRIATE FOR WHAT WAS DISPENSED. RECENT URINE TOXICOLOGY REVIEWED. NO UNAUTHORIZED MEDICATIONS. NO ILLICIT SUBSTANCES AND PRESCRIBED MEDICATIONS WERE PRESENT. PROCEDURE CODES [id number] ESTABILISHED PATIENT [facility] CHARGE DISPOSITION & COMMUNICATION FOLLOW UP 3 MONTHS (REASON: BACK PAIN ) ELECTRONICALLY SIGNED BY FRANCHESCA MARTINEZ ON 01/19/2021 AT 12:45 PM EDT DISCLAIMER : THIS IS A VISIT SUMMARY EXTRACTED FROM THE [employer] CHART. IT IS NOT A COPY OF THE [employer] PROGRESS NOTE. MTDD
== END ==
LOC: M PAIN 10:45
PROVIDERS: ATTEND Family Medicine
DX: M54.5 Low back pain (principal); I10 Essential (primary) hypertension; R56.9 Unspecified convulsions; F32.9 Major depressive disorder, single episode, unspecified; F17.210 Nicotine dependence, cigarettes, uncomplicated; E11.9 Type 2 diabetes mellitus without complications; Z79.82 Long term (current) use of aspirin; Z79.899 Other long term (current) drug therapy; Z99.81 Dependence on supplemental oxygen; Z79.84 Long term (current) use of oral hypoglycemic drugs; Z88.0 Allergy status to penicillin; Z88.8 Allergy status to other drugs, medicaments and biological substances

== ENCOUNTER → 2021-04-20 | Outpatient (CLI) | payer OTHER | LOC: M PAIN 11:00 | PROVIDERS: ATTEND Anesthesiology | DX: M19.90 Unspecified osteoarthritis, unspecified site (principal); E11.9 Type 2 diabetes mellitus without complications; F17.210 Nicotine dependence, cigarettes, uncomplicated; Z86.59 Personal history of other mental and behavioral disorders; Z88.0 Allergy status to penicillin; Z88.8 Allergy status to other drugs, medicaments and biological substances; E66.01 Morbid (severe) obesity due to excess calories; Z68.45 Body mass index [BMI] 70 or greater, adult; Z79.82 Long term (current) use of aspirin; Z79.84 Long term (current) use of oral hypoglycemic drugs; Z79.899 Other long term (current) drug therapy ==